=== PATIENT | female | born 1950 | race Native Hawaiian/Other Pacific Islander ===

== ENCOUNTER → 2019-07-02 | Outpatient (CLI) | payer MEDICARE, OTHER ==
[~2019-07-02] MED LIST: ALPR.25T PO; ALPR0.2550 PO; ARIP5TAB13 PO; ARPZ10T PO; BLACK COHOSH PO; BSP5T PO; CHLO4TAB PO; CLCX200C PO; D50KC PO; DCS100C PO; ESTR1TAB66 PO; EXEM25TA4 PO; GLUCOSE TABLETS PO; HYDR1TAB PO; IRB150T PO; LORA0.5T PO; LORA10TA2 PO; METO50TA7 PO; MTP25TSR PO; OMEP20TA2 PO; OXYC-12 PO; PHEN-452 PO; PROP-33 PO; PROP1TAB2; SRTR100T PO; TETR250C3 PO; TOLT2CAP; TRAM50TA2 PO; [UNRECOGNIZED DRUG - REMARK]
[2019-07-02 13:43] LABS: BASOPHILS % (AUTO) 0 % (0-10); EOSINOPHILS # (AUTO) 0.1 10^3/uL (0.0-0.3); EOSINOPHILS % (AUTO) 1 % (0-10); HEMATOCRIT 42 % (35-52); HEMOGLOBIN 13.4 G/DL (11.5-16.0); LYMPHOCYTES # (AUTO) 4.1 X 10^3 (1.0-4.0); LYMPHOCYTES % (AUTO) 41 % (12-44); MEAN CORPUSCULAR HEMOGLOBIN 29 PG (25-34); MEAN CORPUSCULAR HGB CONC 32 G/DL (32-36); MEAN CORPUSCULAR VOLUME 89 FL (80-99); MEAN PLATELET VOLUME 9.6 FL (7.4-10.4); MONOCYTES # (AUTO) 0.8 X 10^3 (0.0-1.0); MONOCYTES % (AUTO) 8 % (0-12); NEUTROPHILS % (AUTO) 50 % (42-75); PLATELET COUNT 292 10^3/uL (130-400); RED CELL DISTRIBUTION WIDTH 13.9 % (10.0-14.5); WHITE BLOOD COUNT 10.1 10^3/uL (4.3-11.0)
[2019-07-02 14:08] LABS: ALANINE AMINOTRANSFERASE 18 U/L (0-55); ALBUMIN 4.2 GM/DL (3.2-4.5); ALKALINE PHOSPHATASE 141 U/L (40-136); BILIRUBIN,TOTAL 0.3 MG/DL (0.1-1.0); BUN/CREATININE RATIO 17; CALCIUM 9.6 MG/DL (8.5-10.1); CARBON DIOXIDE 27 MMOL/L (21-32); CHLORIDE 104 MMOL/L (98-107); CREATININE SERUM 0.69 MG/DL (0.60-1.30); GFR ESTIMATED > 60; GLUCOSE 86 MG/DL (70-105); POTASSIUM 4.4 MMOL/L (3.6-5.0); SODIUM 138 MMOL/L (135-145); TOTAL PROTEIN 7.4 GM/DL (6.4-8.2)
== END ==
LOC: ONC 13:25
PROVIDERS: ATTEND Internal Medicine Hematology & Oncology
DX: C50.912 Malignant neoplasm of unspecified site of left female breast (principal)
CPT/HCPCS: 36415; 80053; 85025; 99213

== ENCOUNTER 2019-08-11 12:27 | Emergency (ER) | payer MEDICARE, OTHER ==
[~2019-08-11] VITALS: Ht 165.1 cm; Wt 100.0 kg
--- NOTE | 2019-08-11 12:48 | ED Lower Extremity ---
General Stated Complaint: R FOOT PAIN Source: patient Exam Limitations: no limitations (YUSRA SCHAEFFER MD) History of Present Illness Date Seen by Provider: Aug 11, 2019 Time Seen by Provider: 12:42 Initial Comments Here with report of right distal foot pain after dropping a crystal bowl on her foot. Denies other injury. Does have some bandages on her toes where she trimmed her toenails to close. Denies other injury. Onset: this morning Severity: moderate Pain/Injury Location: right foot, right 1st toe, right 2nd toe, right 3rd toe, right 4th toe Method of Injury: direct blow Modifying Factors: Improves With Immobilization; Worse With Movement (YUSRA SCHAEFFER MD) Allergies and Home Medications Allergies Coded Allergies: Codeine (Unverified Allergy, Mild, 10/12/09) Penicillins (Unverified Allergy, Mild, 10/12/09) aspirin (Verified Allergy, 12/31/10) Home Medications Alprazolam 0.25 Mg Tablet, 1-2 TAB PO Q6H PRN, (Reported) TAKES 1-2 (0.25MG) TABLETS EVERY 6 HOURS NEEDED FOR ANXIETY Aripiprazole 5 Mg Tablet, 5 MG PO DAILY, (Reported) Buspirone Hcl 5 Mg Tablet, 5 MG PO BID, (Reported) Celecoxib 200 Mg Capsule, 200 MG PO DAILY, (Reported) Ergocalciferol 50,000 Units Cap, 1.25 MG PO ONCE A WEEK, (Reported) Exemestane 25 Mg Tablet, 25 MG PO DAILY, (Reported) Hydrocodone Bit/Acetaminophen 1 Each Tablet, 1-2 TAB PO EVERY 4-6 HOURS PRN, (Reported) TAKES 1-2 (5-500MG) TABLETS EVERY 4-6 HOURS NEEDED FOR PAIN Metoprolol Succinate 50 Mg Tab.sr.24h, 50 MG PO DAILY, (Reported) Sertraline Hcl 100 Mg Tab, 100 MG PO TID, (Reported) Patient Home Medication List Home Medication List Reviewed: Yes (YUSRA SCHAEFFER MD) Review of Systems Constitutional: see HPI; No chills, No fever Respiratory: no symptoms reported Cardiovascular: no symptoms reported Musculoskeletal: see HPI, joint pain, muscle pain Skin: see HPI; No change in color, No lesions Psychiatric/Neurological: No Symptoms Reported (YUSRA SCHAEFFER MD) Past Avnnhkg-Utwkmw-Vkbhxs Hx Past Med/Social Hx: Reviewed Nursing Past Med/Soc Hx (YUSRA SCHAEFFER MD) Patient Social History Alcohol Use: Denies Use Recreational Drug Use: No Recent Foreign Travel: No Contact w/Someone Who Travel: No (YUSRA SCHAEFFER MD) Immunizations Up To Date Date of Pneumonia Vaccine: Jun 25, 2010 Date of Influenza Vaccine: March 25, 2013 (YUSRA SCHAEFFER MD) Past Medical History Surgeries: Yes Appendectomy, Gallbladder, Orthopedic Respiratory: No Cardiac: Yes Hypertension Neurological: No Reproductive Disorders: No Musculoskeletal: Yes Fractures Cancer: Yes Breast Psychosocial: Yes Anxiety (YUSRA SCHAEFFER MD) Family Medical History No Pertinent Family Hx (YUSRA SCHAEFFER MD) Physical Exam Vital Signs Capillary Refill : (YUSRA SCHAEFFER MD) Height, Weight, BMI Height: '" Weight: 209lbs. oz. kg; BMI Method: General Appearance: WD/WN, no apparent distress Cardiovascular: regular rate, rhythm, no murmur Respiratory: lungs clear, normal breath sounds Feet: right foot other (tenderness to the area of the midfoot distal aspect near the MTP especially lateral. Also has Band-Aids over wounds on the second and third toes. Pain over the second through fifth toes at the MTP.) Neurologic/Psychiatric: alert, oriented x 3 Skin: normal color, warm/dry (YUSRA SCHAEFFER MD) Knees: bilateral knee non-tender, bilateral knee normal inspection, bilateral knee normal range of motion Ankles: bilateral ankle non-tender, bilateral ankle normal inspection, bilateral ankle normal range of motion; right ankle swelling (chronic swelling to the right ankle from previous surgery) Feet: right foot other (tenderness to the area of the midfoot distal aspect near the MTP especially lateral. Also has Band-Aids over wounds on the second and third toes. Pain over the second through fifth toes at the MTP. The second and fourth toenails have been trimmed proximal leaving exposed nailbed of about 3-4 mm on the second and fourth toenails. No evidence of infection no erythema no drainage but there is some dried blood. This was covered with antibiotic ointment and Band-Aid.) (MARC JUSTICE APRN) Progress/Results/Core Measures Progress Progress Note : Progress Note Seen and evaluated with Marc Justice APRN. X-ray right foot ordered. Monitor patient. (YUSRA SCHAEFFER MD) Departure Impression Primary Impression: Contusion of foot Qualified Codes: S90.31XA - Contusion of right foot, initial encounter Disposition: HOME, SELF-CARE Condition: Stable Departure-Patient Inst. Decision time for Depature: 12:56 (MARC JUSTICE APRN) Referrals: SARA FABIAN MD (PCP/Family) Primary Care Physician Patient Instructions: Contusion (DC) Add. Discharge Instructions: 1. Continue to wear the boot as needed for comfort 2. Tylenol and ibuprofen for pain control 3. Return to ER for any concerns and follow up with your doctor next week. YUSRA SCHAEFFER MD Aug 11, 2019 12:48 MARC JUSTICE APRN Aug 11, 2019 12:56
--- NOTE | 2019-08-11 13:06 | Diagnostic Imaging Report ---
Indication: Pain. 3 views were obtained. Findings: The alignment is normal. There are mild degenerative changes. No acute fracture or dislocation. There are postsurgical changes in the ankle. Impression: Degenerative changes however no acute fracture or dislocation. Dictated by: Dictated on workstation # [id number]
[2019-08-11 13:23] VITALS: BP 137/84
== END 2019-08-11 13:24 | disposition home or self-care (01) ==
LOC: EDUNIT# 12:27 → ER 12:28
DX: S90.31XA Contusion of right foot, initial encounter (principal); I10 Essential (primary) hypertension; F41.9 Anxiety disorder, unspecified; Z85.3 Personal history of malignant neoplasm of breast; Z88.5 Allergy status to narcotic agent; Z88.0 Allergy status to penicillin; Z88.6 Allergy status to analgesic agent; Z90.49 Acquired absence of other specified parts of digestive tract; W20.8XXA Other cause of strike by thrown, projected or falling object, initial encounter
CPT/HCPCS: 73630

== ENCOUNTER → 2019-09-03 | Outpatient (CLI) | payer MEDICARE, OTHER ==
--- NOTE | 2019-09-03 12:26 | Diagnostic Imaging Report ---
PROCEDURE: CT right lower extremity without contrast. TECHNIQUE: Axially acquired CT was obtained through the right lower extremity without intravenous contrast. Coronal and sagittal reformations were also performed. Auto Exposure Controls were utilized during the CT exam to meet ALARA standards for radiation dose reduction. INDICATION: Right foot pain in the region of the fifth metatarsal. This study is performed to evaluate for fracture. FINDINGS: A plate and multiple screws transfix the distal fibula. A screw transfixes the medial malleolus. The talus and navicular are unremarkable. The calcaneus and cuboid appear to be intact. The cuneiforms are unremarkable. The metatarsals are intact. Specifically, the 5th metatarsal is unremarkable. No fractures are seen. The visualized phalanges are unremarkable. IMPRESSION: Postsurgical changes to the ankle. No acute bony abnormality is detected. Dictated by: Dictated on workstation # [id number]
--- NOTE | 2019-09-03 16:21 | Diagnostic Imaging Report ---
INDICATION: Routine screening. The patient did describe a questionable lump in the left breast for 2 weeks. COMPARISON: Correlation is made with prior mammograms from 04/28/2016 and 05/08/2015. TECHNIQUE: 2D and 3D bilateral screening mammography was performed with CAD. A BB marker was placed at the area of palpable abnormality in the upper left breast. FINDINGS: Scattered fibroglandular densities are identified bilaterally. The parenchymal pattern appears stable. No underlying abnormality is identified at the patient's palpable abnormality in the upper outer left breast. There are multiple surgical clips in the left axilla. No malignant appearing microcalcifications are seen. IMPRESSION: No mammographic features suspicious for malignancy are identified. Close clinical and self breast exams are recommended of the area of palpable abnormality in the upper outer left breast. If this persists, ultrasound would be recommended for further evaluation. ACR BI-RADS Category 2: Benign findings. Result letter will be mailed to the patient. Note: At least 10% of breast cancer is not imaged by mammography. Dictated by: Dictated on workstation # [id number]
== END ==
LOC: RAD 11:26
PROVIDERS: ATTEND Nurse Practitioner Family
DX: Z12.31 Encounter for screening mammogram for malignant neoplasm of breast (principal)
CPT/HCPCS: 73700; 77067

== ENCOUNTER 2019-10-05 08:47 | Outpatient (RCR) | payer MEDICARE, OTHER | END 2020-01-03 | disposition home or self-care (01) | LOC: CARD 08:47 | PROVIDERS: ATTEND Internal Medicine Cardiovascular Disease | DX: I10 Essential (primary) hypertension (principal); R00.2 Palpitations; R42 Dizziness and giddiness ==

== ENCOUNTER → 2019-12-31 | Outpatient (CLI) | payer MEDICARE, OTHER ==
[~2019-12-31] MED LIST changes: +DENOSUMAB 60 MG/1 ML (PROLIA) CANCER CTR SQ SCH
[2019-12-31 13:26] LABS: BASOPHILS % (AUTO) 0 % (0-10); EOSINOPHILS # (AUTO) 0.1 10^3/uL (0.0-0.3); EOSINOPHILS % (AUTO) 1 % (0-10); HEMATOCRIT 43 % (35-52); HEMOGLOBIN 14.1 G/DL (11.5-16.0); LYMPHOCYTES # (AUTO) 4.4 X 10^3 (1.0-4.0); LYMPHOCYTES % (AUTO) 48 % (12-44); MEAN CORPUSCULAR HEMOGLOBIN 29 PG (25-34); MEAN CORPUSCULAR HGB CONC 33 G/DL (32-36); MEAN CORPUSCULAR VOLUME 89 FL (80-99); MEAN PLATELET VOLUME 9.6 FL (7.4-10.4); MONOCYTES # (AUTO) 0.7 X 10^3 (0.0-1.0); MONOCYTES % (AUTO) 8 % (0-12); NEUTROPHILS % (AUTO) 44 % (42-75); PLATELET COUNT 234 10^3/uL (130-400); RED CELL DISTRIBUTION WIDTH 13.6 % (10.0-14.5); WHITE BLOOD COUNT 9.2 10^3/uL (4.3-11.0)
[2019-12-31 13:43] LABS: ALANINE AMINOTRANSFERASE 81 U/L (0-55); ALBUMIN 3.9 GM/DL (3.2-4.5); ALKALINE PHOSPHATASE 102 U/L (40-136); BILIRUBIN,TOTAL 0.5 MG/DL (0.1-1.0); BUN/CREATININE RATIO 11; CALCIUM 9.4 MG/DL (8.5-10.1); CARBON DIOXIDE 22 MMOL/L (21-32); CHLORIDE 107 MMOL/L (98-107); CREATININE SERUM 0.65 MG/DL (0.60-1.30); GFR ESTIMATED > 60; GLUCOSE 90 MG/DL (70-105); POTASSIUM 4.2 MMOL/L (3.6-5.0); SODIUM 139 MMOL/L (135-145); TOTAL PROTEIN 6.8 GM/DL (6.4-8.2)
== END ==
LOC: ONC 13:05
PROVIDERS: ATTEND Internal Medicine Hematology & Oncology
DX: C50.912 Malignant neoplasm of unspecified site of left female breast (principal)
CPT/HCPCS: 80053; 85025; 96372

== ENCOUNTER → 2020-01-23 | Outpatient (CLI) | payer MEDICARE, OTHER ==
[~2020-01-23] VITALS: Ht 165 cm; Wt 107.0 kg
[~2020-01-23] MED LIST changes: +CATHETER FLUSH 10 ML SYR IV PRN; -DENOSUMAB 60 MG/1 ML (PROLIA) CANCER CTR SQ SCH
--- NOTE | 2020-01-23 15:47 | STRESS TEST ---
DATE OF SERVICE: 01/23/2020 EXERCISE MYOVIEW STRESS TEST REPORT REFERRING PHYSICIAN: . Baseline heart rate is 81 and baseline blood pressure 145/82. Baseline EKG is sinus rhythm with no ischemic changes. In summary, the patient was injected with 10.7 mCi of technetium-99 Myoview and the resting images were obtained. Then, the patient started exercising with a baseline heart rate, blood pressure and EKG mentioned above. The patient was able to exercise for 5 minutes 15 seconds on a standard Ge protocol. With peak exercise level, EKG was showing minimal nondiagnostic changes. During recovery, heart rate and blood pressure returned to baseline. EKG returned to baseline. The resting and stress images were reviewed and compared in the short axis, horizontal long axis and vertical long axis views. Review of the images showed good radiotracer uptake with no significant ischemia or infarction. SSS is 1, SDS 1 and TID value 0.94. On the gated images, the left ventricle appeared to be in normal size with normal contractility. Calculated ejection fraction is 71%. CONCLUSION: 1. Fair exercise tolerance, a total of 5 minutes 15 seconds on standard Ge protocol, total of 7.1 METS achieving 87% of maximum expected heart rate. 2. Hypertensive response to exercise with peak blood pressure 237/106, returned to baseline during recovery. 3. Nondiagnostic EKG changes with exercise returned to baseline during recovery. 4. No ischemia or infarction on SPECT images. 5. Normal left ventricular size with normal contractility. Calculated ejection fraction is 71%. Job ID: [id number] DocumentID: [id number] Dictated Date: 01/23/2020 15:00:27 Orthotic Practitioner Date: 01/23/2020 15:47:23 Dictated By: DOROTA SPARROW MD
== END ==
LOC: CARD 11:20
PROVIDERS: ATTEND Physician Assistant
DX: I10 Essential (primary) hypertension (principal); R00.2 Palpitations; R07.9 Chest pain, unspecified
CPT/HCPCS: 78452; 93017

== ENCOUNTER → 2020-02-11 | Outpatient (CLI) | payer MEDICARE, OTHER ==
[~2020-02-11] MED LIST changes: -CATHETER FLUSH 10 ML SYR IV PRN
--- NOTE | 2020-02-11 12:06 | Diagnostic Imaging Report ---
PROCEDURE: US Abdomen, limited. TECHNIQUE: Multiple realtime grayscale images were obtained over the abdomen in various projections. INDICATION: Pain and lump in the left lower quadrant. Sonographic interrogation of the area of pain and lump of the left lower quadrant was performed. No sonographic abnormality is identified. No abdominal wall defect or evidence of hernia is detected. No fluid collection is identified. IMPRESSION: No sonographic abnormality is detected. Dictated by: Dictated on workstation # [id number]
== END ==
LOC: RAD 08:53
PROVIDERS: ATTEND Nurse Practitioner Family
DX: R10.32 Left lower quadrant pain (principal)
CPT/HCPCS: 76705

== ENCOUNTER → 2020-02-14 | Outpatient (CLI) | payer MEDICARE, OTHER ==
--- NOTE | 2020-02-14 10:42 | Diagnostic Imaging Report ---
PROCEDURE: CT abdomen and pelvis without contrast. TECHNIQUE: Multiple contiguous axial images were obtained through the abdomen and pelvis without the use of intravenous contrast. Auto Exposure Controls were utilized during the CT exam to meet ALARA standards for radiation dose reduction. INDICATION: Left lower quadrant pain COMPARISON: 12/20/2014 FINDINGS: The visualized lung bases are clear. Diffusely decreased density of the liver, consistent with fatty infiltration of the liver. No focal hepatic mass. Cholecystectomy. The unenhanced spleen is unremarkable. The adrenal glands are unremarkable. The pancreas is unremarkable. The right kidney and right ureter are unremarkable. Left renal cyst. The left kidney and left ureter are otherwise unremarkable. No aneurysmal dilatation of the abdominal aorta. The urinary bladder is unremarkable. The uterus is not visualized, likely surgically absent. No abnormal adnexal mass lesion. Prior appendectomy. No bowel obstruction or pneumatosis. No significant inguinal hernia. No significant adenopathy, free air, or free fluid within the abdomen or pelvis. No acute osseous abnormality. IMPRESSION: No acute abnormality. Fatty infiltration of the liver. Cholecystectomy and appendectomy and hysterectomy. Additional findings as above. Dictated by: Dictated on workstation # [id number]
== END ==
LOC: RAD 09:58
PROVIDERS: ATTEND Nurse Practitioner Family
DX: K76.0 Fatty (change of) liver, not elsewhere classified (principal); R10.32 Left lower quadrant pain
CPT/HCPCS: 74176

== ENCOUNTER → 2020-03-03 | Outpatient (CLI) | payer MEDICARE, OTHER ==
--- NOTE | 2020-03-03 13:00 | Diagnostic Imaging Report ---
Indication: Lumbar spinal pain AP image of the lumbar spine is obtained. Images obtained in the lateral projection in flexed, neutral and extended positions. Lumbar spinal curvature and alignment are unremarkable. Vertebral body heights are maintained. There is mild disc space narrowing involving the upper and mid lumbar region. There is mild endplate spurring without evidence of acute fracture. Note is made of sclerosis about the L5-S1 facet joints, greater on the left. Impression: L5-S1 degenerative facet arthropathy, greater on the left. Otherwise there are mild degenerative findings throughout the upper and mid lumbar spine without acute abnormality or lumbar spinal instability identified. Dictated by: Dictated on workstation # [id number]
== END ==
LOC: RAD 11:51
DX: M47.817 Spondylosis without myelopathy or radiculopathy, lumbosacral region (principal)
CPT/HCPCS: 72110

== ENCOUNTER → 2020-07-02 | Outpatient (CLI) | payer MEDICARE, OTHER ==
[~2020-07-02] MED LIST changes: +DENOSUMAB 60 MG/1 ML (PROLIA) CANCER CTR SQ SCH
[2020-07-03 05:57] LABS: ALANINE AMINOTRANSFERASE 44 U/L (0-55); ALBUMIN 3.9 GM/DL (3.2-4.5); ALKALINE PHOSPHATASE 77 U/L (40-136); BILIRUBIN,TOTAL 0.5 MG/DL (0.1-1.0); BUN/CREATININE RATIO 12; CALCIUM 9.2 MG/DL (8.5-10.1); CARBON DIOXIDE 24 MMOL/L (21-32); CHLORIDE 109 MMOL/L (98-107); CREATININE SERUM 0.58 MG/DL (0.60-1.30); GFR ESTIMATED > 60; GLUCOSE 97 MG/DL (70-105); POTASSIUM 4.1 MMOL/L (3.6-5.0); SODIUM 141 MMOL/L (135-145); TOTAL PROTEIN 6.8 GM/DL (6.4-8.2)
[2020-07-03 06:27] LABS: HEMATOCRIT 42 % (35-52); HEMOGLOBIN 13.9 G/DL (11.5-16.0); MEAN CORPUSCULAR HEMOGLOBIN 30 PG (25-34); MEAN CORPUSCULAR VOLUME 91 FL (80-99); WHITE BLOOD COUNT 8.3 10^3/uL (4.3-11.0)
[2020-07-03 06:28] LABS: BASOPHILS % (AUTO) 0 % (0-10); EOSINOPHILS # (AUTO) 0.1 10^3/uL (0.0-0.3); EOSINOPHILS % (AUTO) 1 % (0-10); LYMPHOCYTES % (AUTO) 49 % (12-44); MEAN CORPUSCULAR HGB CONC 34 G/DL (32-36); MEAN PLATELET VOLUME 9.4 FL (7.4-10.4); MONOCYTES # (AUTO) 0.6 X 10^3 (0.0-1.0); MONOCYTES % (AUTO) 8 % (0-12); NEUTROPHILS # (AUTO) 3.5 X 10^3 (1.8-7.8); NEUTROPHILS % (AUTO) 42 % (42-75); PLATELET COUNT 241 10^3/uL (130-400); RED CELL DISTRIBUTION WIDTH 13.6 % (10.0-14.5)
== END ==
LOC: ONC 11:30
PROVIDERS: ATTEND Internal Medicine Hematology & Oncology
DX: C50.112 Malignant neoplasm of central portion of left female breast (principal); N64.89 Other specified disorders of breast; M85.80 Other specified disorders of bone density and structure, unspecified site; Z92.3 Personal history of irradiation
CPT/HCPCS: 80053; 85025; G0463; 99213

== ENCOUNTER → 2020-07-10 | Outpatient (CLI) | payer MEDICARE, OTHER ==
[~2020-07-10] MED LIST changes: -DENOSUMAB 60 MG/1 ML (PROLIA) CANCER CTR SQ SCH
--- NOTE | 2020-07-10 10:59 | Diagnostic Imaging Report ---
INDICATION: Tenderness in the lateral right breast. Correlation is made with prior mammogram from 09/03/2019 and 05/01/2016. 2-D and 3-D bilateral diagnostic mammography was performed with CAD. Scattered fibroglandular densities identified bilaterally. No mass or malignant appearing microcalcifications are seen. There are clips in the left axilla. IMPRESSION: BI-RADS 0 No mammographic features suspicious for malignancy are identified. Even so, directed sonographic interrogation of the area of tenderness in the lateral right breast is recommended and will be performed today. ACR BI-RADS Category 0: Incomplete. (Needs additional imaging evaluation). Result letter will be mailed to the patient. Note: At least 10% of breast cancer is not imaged by mammography. Dictated by: Dictated on workstation # [id number]
--- NOTE | 2020-07-10 11:04 | Diagnostic Imaging Report ---
Indication: Tenderness in the lateral right breast. Correlation is made with diagnostic mammogram earlier same day. Sonographic interrogation of the area of pain in the far lateral right breast and right axilla was performed. No sonographic abnormality is seen. No solid or cystic mass is detected. IMPRESSION: BI-RADS Category 1 No sonographic abnormality is detected. ACR BI-RADS Category 1: Negative. Dictated by: Dictated on workstation # [id number]
== END ==
LOC: RAD 09:45
PROVIDERS: ATTEND Nurse Practitioner Adult Health
DX: N63.10 Unspecified lump in the right breast, unspecified quadrant (principal); Z85.3 Personal history of malignant neoplasm of breast
CPT/HCPCS: 76642; 77066; G0279; 77062

== ENCOUNTER → 2021-01-21 | Outpatient (CLI) | payer MEDICARE, OTHER | LOC: CARD 13:19 | PROVIDERS: ATTEND Internal Medicine Cardiovascular Disease | DX: R00.2 Palpitations (principal) | CPT/HCPCS: 93351 ==

== ENCOUNTER → 2021-03-18 | Outpatient (CLI) | payer MEDICARE, OTHER ==
[~2021-03-18] MED LIST changes: +CATHETER FLUSH 10 ML SYR IV PRN; +HOLD METFORMIN - RECEIVED CONTRAST 20 ML VIAL IV SCH; +IOHEXOL 350 MG/ML 100 ML (OMNIPAQUE 350) VIAL IV ONE; +NS 100 ML (IVPB) BAG IV ONE
[2021-03-18 08:16] LABS: BUN/CREATININE RATIO 9; CREATININE SERUM 0.74 MG/DL (0.60-1.30); GFR ESTIMATED > 60
--- NOTE | 2021-03-18 10:16 | Diagnostic Imaging Report ---
PROCEDURE: CT abdomen and pelvis with and without contrast. TECHNIQUE: Precontrast acquisitions were acquired through the abdomen and pelvis. Multiple contiguous axial images were obtained through the abdomen and pelvis after the administration of intravenous contrast. Auto Exposure Controls were utilized during the CT exam to meet ALARA standards for radiation dose reduction. INDICATION: Left-sided pain, history of breast cancer. FINDINGS: The previous CT abdomen/pelvis exam of 02/14/2020 failed to show any sign of an acute abnormality. On this study, there is still no evidence for nephrolithiasis or urolithiasis and the kidneys do not appear to be obstructed. There is no sign of a bowel obstruction either. There is no pelvic mass or free fluid collection identified. There are a few diverticula in the sigmoid colon but there is no evidence for acute diverticulitis. By history, the gallbladder, uterus, and appendix are surgically absent. The liver is of lower density than usually seen. This does suggest fatty metamorphosis. The liver does not appear to be enlarged and there is no focal mass involving the liver. The spleen, pancreas, adrenals, aorta, inferior vena cava, and portal vein show no sign of an acute abnormality. There is a benign-appearing 3.8 cm cyst along the superior pole of the left kidney. The stomach is not well-distended and consequently difficult to assess. The lung bases are generally clear. There is no obvious breast mass. The bone windows show no sign of a fracture or destructive lesion. IMPRESSION: 1. There is still no evidence for an acute abnormality of the abdomen or pelvis. 2. There is diverticulosis of the sigmoid and descending colon but there is no sign of acute diverticulitis. 3. The gallbladder, appendix, and uterus are surgically absent. Dictated by: Dictated on workstation # [id number]
== END ==
LOC: RAD 07:43
PROVIDERS: ATTEND Nurse Practitioner Family
DX: K57.30 Diverticulosis of large intestine without perforation or abscess without bleeding (principal); Z90.49 Acquired absence of other specified parts of digestive tract; Z85.3 Personal history of malignant neoplasm of breast
CPT/HCPCS: 36415; 74178; 82565; 84520

== ENCOUNTER 2021-04-10 05:41 | Outpatient (CLI) | payer MEDICARE, OTHER ==
[~2021-04-10] VITALS: Ht 162.6 cm; Wt 105.5 kg
[~2021-04-10 05:41] MED LIST changes: -CATHETER FLUSH 10 ML SYR IV PRN; -HOLD METFORMIN - RECEIVED CONTRAST 20 ML VIAL IV SCH; -IOHEXOL 350 MG/ML 100 ML (OMNIPAQUE 350) VIAL IV ONE; -NS 100 ML (IVPB) BAG IV ONE
[2021-04-14] MEDS ORDERED: GABA300S2 PO (14:30)
[2021-04-14] MEDS ORDERED: AMIT25TA9 PO (14:30)
[2021-04-14] MEDS ORDERED: ROSU20TA32 PO (14:30)
[2021-04-14] MEDS ORDERED: LOSA25TA41 PO (14:30)
[2021-04-14] MEDS ORDERED: HYDR-700 PO (14:30)
[2021-04-16] MEDS ORDERED: OXYC1TAB16 PO (10:20)
== END 2021-04-14 14:42 | disposition home or self-care (01) ==
LOC: PREOP 05:41
PROVIDERS: ATTEND Surgery
DX: Z01.818 Encounter for other preprocedural examination (principal)

== ENCOUNTER 2021-04-16 09:19 | Day surgery (SDC) | payer MEDICARE, OTHER ==
[~2021-04-16] VITALS: Ht 162.6 cm; Wt 105.5 kg
[2021-04-16] VITALS (10 sets, daily range): BP systolic 131–172; BP diastolic 59–75
[~2021-04-16 09:19] MED LIST changes: +AMIT25TA9 PO; +GABA300S2 PO; +HYDR-700 PO; +LOSA25TA41 PO; +ROSU20TA32 PO
[2021-04-16] MEDS ORDERED: CLINDAMYCIN 600 MG/50 ML IVPB 50 ML IV ONE (09:30)
[2021-04-16] MEDS ORDERED: proPOfol 200 MG/20 ML (DIPRIVAN) VIAL IV ONE (09:51)
[2021-04-16] MEDS ORDERED: LIDOCAINE PF 2% 5 ML (XYLOCAINE) VIAL ONE (09:51)
[2021-04-16] MEDS ORDERED: ROCURONIUM 10 MG/ML 5 ML SYRINGE IV ONE (09:51)
[2021-04-16] MEDS ORDERED: MIDAZOLAM 2 MG/2 ML (VERSED) VIAL ONE (09:51)
[2021-04-16] MEDS ORDERED: ONDANSETRON 4 MG/2 ML (SDV) Z0FRAN ONE (09:51)
[2021-04-16] MEDS ORDERED: fentaNYL INJ 100 MCG/2 ML AMP ONE (09:51)
[2021-04-16] MEDS ORDERED: SEVOFLURANE (ULTANE) 15 ML INHAL SOLN ONE ×5 (09:54→12:41)
[2021-04-16] MEDS: LACTATED RINGERS 1,000 ML IV PRN ×2 (10:00→13:07)
--- NOTE | 2021-04-16 10:18 | Progress Note-Pre Operative ---
Pre-Operative Progress Note H&P Reviewed The H&P was reviewed, patient examined and no changes noted. Date Seen by Provider: Apr 16, 2021 Time Seen by Provider: 10:00 Date H&P Reviewed: Apr 16, 2021 Time H&P Reviewed: 10:00 Pre-Operative Diagnosis: umbilical hernia, lower abd pain NEDRA CHRISTIE MD Apr 16, 2021 10:18
[2021-04-16] MEDS ORDERED: OXYC1TAB16 PO (10:20)
--- NOTE | 2021-04-16 10:20 | Discharge Inst-Surgical ---
D/C Lap Instructions-SHAHNAZ New, Converted, or Re-Newed RX: RX on Chart Follow Up Appt in 2 weeks Activity as tolerated No driving for 24 hours No driving while on pain medications Incentive Spirometry use every 2 hours while awake Regular Diet Symptoms to Report: Fever over 101 degree F, Nausea/Vomiting Infection Signs and Symptoms to report: Increased redness, Foul odor of wound, Increased drainage Bathing instructions: May shower Operative Area Clean/Dry; Keep incision clean/dry If any problems/questions: Contact your physician or go to Emergency Room NEDRA CHRISTIE MD Apr 16, 2021 10:20
[2021-04-16] MEDS ORDERED: oxyCODONE/APAP 5/325MG (PERCOCET 5) TABLET PO PRN (10:30)
[2021-04-16] MEDS ORDERED: ACETAMINOPHEN 325 MG TABLET PO PRN (10:30)
[2021-04-16] MEDS ORDERED: morphine INJ 10 MG/ML 1ML (SYR OR VIAL) IVP PRN ×2 (10:30)
[2021-04-16] MEDS ORDERED: ONDANSETRON 4 MG/2 ML (SDV) Z0FRAN IVP PRN ×2 (10:30→13:15)
[2021-04-16] MEDS ORDERED: LIDOCAINE/EPI 1%-1:200,000 (XYLOCAINE) 30 ML VIAL ONE (10:44)
--- NOTE | 2021-04-16 12:42 | Progress Note-Post Operative ---
Post-Operative Progess Note Surgeon (s)/Cassandra Developer (s) Surgeon NEDRA CHRISTIE MD Cassandra Developer: joshua shook STEAM FITTER Pre-Operative Diagnosis umbilical hernia, lower abd pain Post-Operative Diagnosis preperitoneal umbilical hernia. subcutaneous adhesions lower abd. Procedure & Operative Findings Date of Procedure 04/16/21 Procedure Performed/Findings diagnostic laparoscopy. open umbilical hernia repair with mesh. lysis of abdominal wall subcutaneous scar adhesions Anesthesia Type get Estimated Blood Loss Estimated blood loss (mL): minimal Specimens/Packing Specimens Removed none NEDRA CHRISTIE MD Apr 16, 2021 12:42
[2021-04-16] MEDS ORDERED: morphine INJ 10 MG/ML 1ML (SYR OR VIAL) IVP ONE (13:15)
--- NOTE | 2021-04-16 14:48 | Anesthesia-General Post-Op ---
General Patient Condition Mental Status/LOC: Same as Preop Cardiovascular: Satisfactory Nausea/Vomiting: Absent Respiratory: Satisfactory Pain: Controlled Complications: Absent Post Op Complications Complications None Follow Up Care/Instructions Patient Instructions None needed. Anesthesia/Patient Condition Patient Condition Patient is doing well, no complaints, stable vital signs, no apparent adverse anesthesia problems. No complications reported per nursing. TARIK VELEZ CRNA Apr 16, 2021 14:48
--- NOTE | 2021-04-16 17:10 | OPERATIVE REPORT ---
DATE OF SERVICE: 04/16/2021 ATTENDING PRIMARY CARE PHYSICIAN: Dr. Santos Negrete. PREOPERATIVE DIAGNOSES: Symptomatic reducible umbilical hernia and lower abdominal pain along the previous hysterectomy incision. POSTOPERATIVE DIAGNOSES: Umbilical reducible preperitoneal hernia. No incisional hernia. Subcutaneous adhesive tissue attaching the skin to the fascia from a previous hysterectomy scar. PROCEDURES PERFORMED: Diagnostic laparoscopy open repair, preperitoneal umbilical hernia with mesh, release of subcutaneous adhesion tissue previous hysterectomy scar. SURGEON: Nedra Christie MD. INSURANCE FOLLOW UP REP: Lane Owen APRN. ANESTHESIA: General endotracheal. ESTIMATED BLOOD LOSS: Minimal. FINDINGS: Umbilical reducible preperitoneal hernia. No incisional hernia. Subcutaneous adhesive tissue attaching the skin to the fascia from a previous hysterectomy scar. DISPOSITION: The patient tolerated the procedure well. INDICATIONS FOR PROCEDURE: The patient is a 71-year-old female, who was initially seen on 03/10/2021 for abdominal pain. She reports that six months previous, she was working with topsoil bags, which were approximately 50 pounds and while lifting developed pain in the left lower abdominal quadrant; however, also had pain in the right lower abdominal quadrant. She states that with activities, the pain would reoccur. She is otherwise eating well and having normal bowel movements. She states that she has struggled with constipation in the past. She did have a CT scan performed, which did show a left renal cyst. She had had previous surgeries including a total hysterectomy as well as bladder suspension in the past with a Pfannenstiel incision. Upon examination, the patient was found to have pain in the lower abdominal quadrants, which may have represented lipomas versus a scar tissue from her previous Pfannenstiel incision. There was also a reducible umbilical hernia, which was tender to palpation. DESCRIPTION OF PROCEDURE: The patient was brought to the operating room and laid supine on the table. After adequate IV pain and sedative medications and general endotracheal intubation, the abdomen was prepped and draped in a standard surgical fashion. A 0.5% Marcaine with epinephrine was then used to anesthetize the overlying skin in the left upper abdominal quadrant and a transverse skin incision was made using a 15 blade. A 0 silk suture was applied to the medial aspect of the incision for retraction and a Veress needle inserted with a low opening pressure of 0 mmHg and the abdomen was then insufflated to 15 mmHg pressure. The Veress needle removed and a 5 mm XL trocar was placed followed by a 5 mm 45-degree angle laparoscope visualizing the peritoneal cavity. A four-quadrant abdominal exploration was performed. There was the palpable umbilical hernia externally; however, this did not penetrate the peritoneal lining more consistent with a preperitoneal hernia. There was no incisional hernia identified. There was an indentation of the skin along the previous Pfannenstiel incision consistent with scar tissue. It appears that she has gained a significant amount of weight over time since her surgery. There were no inguinal hernias. There was a mild to moderate liver steatosis. We then proceeded with an open repair of the preperitoneal umbilical hernia. The supraumbilical region was anesthetized using a 0.5% Marcaine with epinephrine and a crescent shaped skin incision made using a 15 blade. The subcutaneous tissue was then dissected down using electrocautery to the base of the umbilicus, where a defect was identified with fat protruding through this. It was decided then to proceed with a preperitoneal hernia repair and the peritoneal lining was dissected bluntly and a small round coated polypropylene mesh 4.3 cm in diameter was then placed into the fascial defect and sutured to the fascia concentrically using interrupted 0 Prolene sutures. The abdomen was then desufflated and the remaining ports were removed. During insufflation, there was indentation of the previous Pfannenstiel incision scar likely consistent with a subcutaneous scar tissue tethering the skin to the fascia causing her lower quadrant abdominal pain. The bilateral portions of the Pfannenstiel incision were then anesthetized using a 0.5% Marcaine and a transverse skin incision was then made using a 15 blade to 2cm. Using a blunt dissection, the subcutaneous scar tissue was broken up bluntly releasing the skin from the subcutaneous scar tissue with visualization of good hemostasis. All skin incisions were then closed using 4-0 Monocryl running subcuticular sutures. The wounds were then cleaned and covered with Dermabond. The umbilicus was then filled with tonsil sponges followed by 4 x 4 gauze followed by large Op-Site. The patient tolerated the procedure well. We will start IV normal pain medication as well as a clear liquid diet. When she is tolerating clears, has good pain control with oral pain medications, and ambulating well, we will discharge her home. She will be instructed to do no heavy lifting or exertion for the next two weeks. Job ID: [id number] DocumentID: [id number] Dictated Date: 04/16/2021 12:52:29 Animal Trainer Date: 04/16/2021 17:09:51 Dictated By: NEDRA CHRISTIE MD MTDD
--- NOTE | 2021-04-17 16:20 | HISTORY AND PHYSICAL ---
ADMITTING PRIMARY CARE PHYSICIAN: Dr. Santos Negrete. HISTORY OF PRESENT ILLNESS: The patient is a 71-year-old female who we had seen on 03/10/2021 for abdominal pain. She states that approximately 6 months ago, she was working with top soil bags, which were approximately 50 pounds and while lifting, developed pain in the left lower abdominal quadrant; however, was also in the right lower abdominal quadrant as well. She states that with activities, the pain would reoccur as well. She states that she is otherwise eating well and does have bowel movements, but however, has struggled with constipation for many years. She did have a CT scan done, which did show a left renal cyst; however, no hernias were detected. She has had previous surgeries performed including total hysterectomy as well as bladder suspension in the past. Upon examination, the patient does have pain upon palpation of the lower quadrants of the abdomen and there appears to be some discrete nodules, likely consistent with symptomatic lipomas. She also does have pain in the umbilical region and she does have a reducible umbilical hernia as well. There are no peritoneal signs. PAST MEDICAL HISTORY: Left breast cancer, hypoglycemia, depression, panic attacks, hypercholesterolemia, hypertension, neuropathy, morbid obesity. PAST SURGICAL HISTORY: Bladder suspension in 1994, right ankle ORIF in 2004, open total hysterectomy in 1974, left breast lumpectomy and sentinel node in 2011. ALLERGIES: PENICILLIN AND CODEINE. MEDICATIONS: Sertraline, hydroxyzine, Zyrtec, omega 3 fatty acid, aripiprazole, clonazepam, losartan, metoprolol, amitriptyline, rosuvastatin, gabapentin, triamcinolone cream. SOCIAL HISTORY: Negative for smoke, negative alcohol. FAMILY HISTORY: Sister, breast cancer. Maternal grandmother, breast cancer. VITAL SIGNS: Stable. Blood pressure 153/61. Current weight 236.7 pounds at 5 feet 4 inches. REVIEW OF SYSTEMS: Well-nourished female currently in no acute distress. She is not experiencing any shortness of breath or difficulty breathing. No chest pain, palpitations, diaphoresis. No nausea, vomiting with a longstanding history of constipation, no red blood per rectum, no dark tarry stools. No fever, chills, no recent inadvertent weight loss. All other review of systems negative. PHYSICAL EXAMINATION: CHEST: Clear. Good breath sounds bilaterally. HEART: Regular, no murmurs. EXTREMITIES: No lower extremity edema, negative Homans sign. HEENT: No scleral icterus. NECK: No cervical lymphadenopathy. ABDOMEN: There is a symptomatic reducible umbilical hernia. There is also pain in bilateral lower abdominal quadrants with a consistency upon deep palpation with pain elicited which may indicate benign lipomas. There were no hernias palpable in the lower abdominal quadrants. SKIN: Warm, dry. ASSESSMENT AND PLAN: A 71-year-old female with symptomatic reducible umbilical hernia. She also may have an incisional hernia; however, we cannot discern this on physical examination as well as on the CT scan, so we will proceed with a diagnostic laparoscopy and repair of the umbilical hernia as well as any other hernias identified. During pneumo insufflation as well as general anesthesia, we will also palpate the abdominal wall, especially in the lower abdominal quadrants for well circumscribed lesions in the subcutaneous fat, which may indicate symptomatic lipomas and thus so we will excise these as well. Job ID: [id number] DocumentID: [id number] Dictated Date: 04/01/2021 17:09:55 Instructional Services Librarian Date: 04/01/2021 17:35:30 Dictated By: NEDRA CHRISTIE MD <Dictated by NEDRA CHRISTIE MD> <Electronically signed by NEDRA CHRISTIE MD> 04/02/21 1558 MTDD
== END 2021-04-16 15:10 ==
LOC: SDC 09:19
PROVIDERS: ATTEND Surgery
DX: K42.9 Umbilical hernia without obstruction or gangrene (principal); K66.0 Peritoneal adhesions (postprocedural) (postinfection); L90.5 Scar conditions and fibrosis of skin; I10 Essential (primary) hypertension; E78.5 Hyperlipidemia, unspecified; E66.01 Morbid (severe) obesity due to excess calories; G62.9 Polyneuropathy, unspecified; F32.9 Major depressive disorder, single episode, unspecified; Z85.3 Personal history of malignant neoplasm of breast; E16.2 Hypoglycemia, unspecified; E78.00 Pure hypercholesterolemia, unspecified; Z90.710 Acquired absence of both cervix and uterus; Z79.899 Other long term (current) drug therapy
CPT/HCPCS: 49320; 49585; 87081; C1781

== ENCOUNTER → 2021-06-29 | Outpatient (CLI) | payer MEDICARE, OTHER ==
[~2021-06-29] MED LIST changes: +OXYC1TAB16 PO
[2021-06-29 13:18] LABS: BASOPHILS % (AUTO) 0 % (0-10); EOSINOPHILS # (AUTO) 0.2 10^3/uL (0.0-0.3); EOSINOPHILS % (AUTO) 2 % (0-10); HEMATOCRIT 44 % (35-52); HEMOGLOBIN 14.3 g/dL (11.5-16.0); LYMPHOCYTES # (AUTO) 3.8 10^3/uL (1.0-4.0); LYMPHOCYTES % (AUTO) 46 % (12-44); MEAN CORPUSCULAR HEMOGLOBIN 31 pg (25-34); MEAN CORPUSCULAR HGB CONC 33 g/dL (32-36); MEAN CORPUSCULAR VOLUME 93 fL (80-99); MEAN PLATELET VOLUME 9.4 fL (9.0-12.2); MONOCYTES # (AUTO) 0.6 10^3/uL (0.0-1.0); MONOCYTES % (AUTO) 8 % (0-12); NEUTROPHILS # (AUTO) 3.5 10^3/uL (1.8-7.8); NEUTROPHILS % (AUTO) 44 % (42-75); PLATELET COUNT 214 10^3/uL (130-400); WHITE BLOOD COUNT 8.1 10^3/uL (4.3-11.0)
[2021-06-29 13:41] LABS: ALBUMIN 3.9 GM/DL (3.2-4.5); BILIRUBIN,TOTAL 0.6 MG/DL (0.1-1.0); CALCIUM 9.5 MG/DL (8.5-10.1); CREATININE SERUM 0.75 MG/DL (0.60-1.30); POTASSIUM 4.2 MMOL/L (3.6-5.0); TOTAL PROTEIN 6.9 GM/DL (6.4-8.2)
== END ==
LOC: ONC 13:07
PROVIDERS: ATTEND Internal Medicine Hematology & Oncology
DX: N64.4 Mastodynia (principal); M79.629 Pain in unspecified upper arm; R22.2 Localized swelling, mass and lump, trunk
CPT/HCPCS: 80053; 85025; G0463; 99213

== ENCOUNTER → 2021-07-08 | Outpatient (CLI) | payer MEDICARE, OTHER ==
[~2021-07-08] MED LIST changes: +HOLD METFORMIN - RECEIVED CONTRAST 20 ML VIAL IV SCH
--- NOTE | 2021-07-08 13:25 | Diagnostic Imaging Report ---
Indication: Left breast carcinoma. Patient's pain in the lateral right breast. Correlation is made with prior mammogram 07/10/2020 and 09/03/2019. 2-D and 3-D bilateral diagnostic mammography was performed with CAD. Scattered fibroglandular densities are identified bilaterally. There are surgical clips in left axilla. No spiculated mass or malignant-appearing microcalcifications are seen. There are benign calcifications. Axillae are unremarkable. IMPRESSION: BI-RADS 0 No mammographic features suspicious for malignancy are identified. Even so, the sonographic interrogation of the area of pain in the outer right breast is recommended and will be performed today. ACR BI-RADS Category 0: Incomplete. (Needs additional imaging evaluation). Result letter will be mailed to the patient. Note: At least 10% of breast cancer is not imaged by mammography. Dictated by: Dictated on workstation # [id number]
--- NOTE | 2021-07-08 13:36 | Diagnostic Imaging Report ---
INDICATION: Pain in the lower outer right breast. COMPARISON: Correlation is made with the diagnostic mammogram from earlier this same day. FINDINGS: Sonographic interrogation of the area of pain in the lower outer right breast was performed. No sonographic abnormality is seen. No solid or cystic mass is detected. IMPRESSION: No sonographic abnormality is detected. ACR BI-RADS Category 1: Negative. Dictated by: Dictated on workstation # [id number]
[2021-07-08] MEDS: IOHEXOL 350 MG/ML 100 ML (OMNIPAQUE 350) VIAL IV ONE (13:37)
[2021-07-08] MEDS: NS 100 ML (IVPB) BAG IV ONE (13:38)
[2021-07-08] MEDS: CATHETER FLUSH 10 ML SYR IV PRN (13:38)
--- NOTE | 2021-07-08 14:56 | Diagnostic Imaging Report ---
PROCEDURE: CT chest with contrast only. TECHNIQUE: Multiple contiguous axial images were obtained through the chest after administration of intravenous contrast. Auto Exposure Controls were utilized during the CT exam to meet ALARA standards for radiation dose reduction. DATE: July 08, 2021. COMPARISON: CT chest December 20, 2014. INDICATION: 71-year-old female, chest pain. History of left-sided breast cancer. FINDINGS: There is a 3 mm noncalcified right lower lobe pulmonary nodule on axial image 77 which is unchanged. There are mild linear opacities in the left upper lobe, most consistent with scarring and/or atelectasis. There is no new or enlarging pulmonary nodule. There is no otherwise noted focal airspace consolidation. There is no pneumothorax. There is no pleural effusion. There is no identified central pulmonary embolus. The heart is not enlarged. There is no pericardial effusion. There is no identified abnormally enlarged mediastinal, hilar, or axillary lymph node meeting CT size criteria for adenopathy. There is diffuse fatty infiltration of the liver. The patient is status post cholecystectomy. There is no biliary ductal dilation. There is a low-attenuation left renal lesion on axial image 136 measuring 3.5 cm in size with internal attenuation compatible with a benign cyst. There are degenerative changes of the spine. There is no identified acute bony abnormality. IMPRESSION: 1. No identified acute cardiopulmonary abnormality. 2. A 3 mm noncalcified right lower lobe pulmonary nodule is compatible with benign etiology given stability since 2014. 3. Diffuse fatty infiltration of the liver. 4. Benign left renal cyst. Dictated by: Dictated on workstation # [id number]
== END ==
LOC: RAD 12:44
PROVIDERS: ATTEND Nurse Practitioner Adult Health
DX: N64.4 Mastodynia (principal); R91.1 Solitary pulmonary nodule; K76.0 Fatty (change of) liver, not elsewhere classified; N28.1 Cyst of kidney, acquired; Z85.3 Personal history of malignant neoplasm of breast
CPT/HCPCS: 71260; 76642; 77066; G0279; 77062

== ENCOUNTER → 2021-08-31 | Outpatient (CLI) | payer MEDICARE, OTHER ==
[~2021-08-31] MED LIST changes: -HOLD METFORMIN - RECEIVED CONTRAST 20 ML VIAL IV SCH
== END ==
LOC: ONC 13:08
PROVIDERS: ATTEND Internal Medicine Hematology & Oncology
DX: C50.112 Malignant neoplasm of central portion of left female breast (principal); I89.0 Lymphedema, not elsewhere classified; M85.80 Other specified disorders of bone density and structure, unspecified site; I10 Essential (primary) hypertension; E66.9 Obesity, unspecified; E78.2 Mixed hyperlipidemia; Z92.3 Personal history of irradiation
CPT/HCPCS: 99213

== ENCOUNTER → 2022-01-05 | Outpatient (CLI) | payer MEDICARE, OTHER ==
--- NOTE | 2022-01-05 11:28 | Diagnostic Imaging Report ---
INDICATION: Fell out of bed. Pain EXAMINATION: Left elbow 01/05/2022 FINDINGS: There is no evidence for an acute fracture or dislocation. The joint spaces are well maintained. There is no significant soft tissue swelling. IMPRESSION: No acute process. Dictated by: Dictated on workstation # [id number]
== END ==
LOC: RAD 10:16
DX: S59.902A Unspecified injury of left elbow, initial encounter (principal); W06.XXXA Fall from bed, initial encounter
CPT/HCPCS: 73080

== ENCOUNTER 2022-05-05 13:32 | Emergency (ER) | payer MEDICARE, OTHER ==
--- NOTE | 2022-05-05 14:56 | ED General ---
General Chief Complaint: Cardiac/General Problems Stated Complaint: BILAT FEET SWELLING Nursing Triage Note: PT AMB TO [facility] WITH C/O BILAT FEET SWELLING FOR ABOUT 1 WEEK. PT STATES SHE WAS IN [place] WHEN IT STARTED AND HAS GOTTEN WORSE SINCE GETTING HOME, Source of Information: Patient Exam Limitations: No Limitations History of Present Illness Date Seen by Provider: May 05, 2022 Time Seen by Provider: 14:40 Initial Comments Patient to ER by private conveyance chief complaint of 1 week of swelling bilateral feet. No redness or erythema. She has a wound from her shoe on the top of her left foot she is dressing with a Band-Aid which is healing well. She does not have a history of heart failure or coronary disease. She follows with Magda because she has a history of palpitations. She is a patient of Dr. Lemus. She has an echocardiogram [address] Man demonstrating normal EF without evidence of stress-induced ischemia. She is not on diuretics, Norvasc or had any recent changes in medications. No paroxysmal nocturnal dyspnea, no orthopnea. Swelling is better in the morning and worse throughout the day as she stands up. She has not been on compression stockings in the past. Allergies and Home Medications Allergies Coded Allergies: Penicillins (Unverified Allergy, Mild, EDEMA, 04/14/21) codeine (Unverified Allergy, Mild, EMESIS, 04/14/21) aspirin (Verified Allergy, Unknown, THIN BLOOD, 04/14/21) Patient Home Medication List Home Medication List Reviewed: Yes Alprazolam (Xanax) 0.25 Mg Tablet, 1-2 TAB PO Q6H PRN, (Reported) Entered as Reported by: ASIF FLORES on 06/25/13 1008 Amitriptyline HCl (Amitriptyline HCl) 25 Mg Tablet, 25 MG PO DAILY, (Reported) Entered as Reported by: ELIAN MARTINEZ on 04/14/21 1430 Aripiprazole (Abilify 5MG) 5 Mg Tablet, 5 MG PO DAILY, (Reported) Entered as Reported by: ASIF FLORES on 06/25/13 1008 Celecoxib (Celebrex) 200 Mg Capsule, 200 MG PO DAILY, (Reported) Entered as Reported by: JENNIFER MARRERO on 04/15/10 0831 Compression Socks, Large (Lifestylecomfort Socks) 1 Each Each, EACH MC DAILY, (DME) Prescribed by: CHELITA TY on 05/05/22 1459 Gabapentin (Gabapentin) 300 Mg/6 Ml Solution, 300 MG PO TID, (Reported) Entered as Reported by: ELIAN MARTINEZ on 04/14/21 1430 Hydrocodone Bit/Acetaminophen (Vicodin 5-500 Tablet) 1 Each Tablet, 1-2 TAB PO EVERY 4-6 HOURS PRN, (Reported) Entered as Reported by: EMILY SINGLETON on 06/01/12 0151 Hydroxyzine HCl (Hydroxyzine HCl) 25 Mg Tablet, 25 MG PO, (Reported) Entered as Reported by: ELIAN MARTINEZ on 04/14/21 1430 Losartan Potassium (Losartan Potassium) 25 Mg Tablet, 25 MG PO DAILY, (Reported) Entered as Reported by: ELIAN MARTINEZ on 04/14/21 1430 Metoprolol Succinate (Toprol Xl 50 Mg) 50 Mg Tab.sr.24h, 100 MG PO BID, (Reported) Entered as Reported by: JAYNA GAUTHIER on 12/30/10 1839 Oxycodone HCl/Acetaminophen (Percocet 7.5-325 mg Tablet) 1 Each Tablet, 1 TAB PO Q6H PRN for PAIN-MODERATE Prescribed by: NEDRA CHRISTIE on 04/16/21 1020 Rosuvastatin Calcium (Rosuvastatin Calcium) 20 Mg Tablet, 20 MG PO DAILY, (Reported) Entered as Reported by: ELIAN MARTINEZ on 04/14/21 1430 Sertraline Hcl (Zoloft) 100 Mg Tab, 100 MG PO TID, (Reported) Entered as Reported by: MARIE BISWAS on 10/12/09 1801 Review of Systems Review of Systems Constitutional: No chills, No diaphoresis EENTM: No ear discharge, No ear pain Respiratory: No cough, No dyspnea on exertion, No short of breath Cardiovascular: No chest pain; edema; No Hx of Intervention, No palpitations Gastrointestinal: No abdominal pain, No nausea All Other Systems Reviewed Negative Unless Noted: Yes Past Dlgjpec-Qcgbpj-Zwvoll Hx Patient Social History Tobacco Use?: No Use of E-Cig and/or Vaping dev: No Substance use?: No Alcohol Use?: No Pt feels they are or have been: No Immunizations Up To Date Influenza Vaccine Up-to-Date: Yes; Up-to-Date First/Initial COVID19 Vaccinat: dec 2020 Second COVID19 Vaccination Riaz: january 2021 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 Seasonal Allergies Seasonal Allergies: No Past Medical History Surgery/Hospitalization HX: DEPRESSION, PANIC ATTACKS, HLD, HTN, DEPRESION, HTN, NERVE PAIN ANKLE, BLADDER, PARTIAL L MASTECTOMY Surgeries: Yes (RIGHT FOOT ANKLE FX, BLADDER SLING, PARTIAL MASECTOMY LEFT BREAST NODE REM) Appendectomy, Gallbladder, Orthopedic Respiratory: No Currently Using CPAP: No Currently Using BIPAP: No Cardiac: Yes Heart Murmur, Hypertension, Palpitations Neurological: No Reproductive Disorders: No PEDIATRIC NP History: Hysterectomy Genitourinary: No Gastrointestinal: Yes Hemorrhoids Musculoskeletal: Yes Osteoporosis, Rheumatoid Arthritis, Fractures Endocrine: Yes (HYPOGLYCEMIC) HEENT: No Cancer: Yes Breast Psychosocial: Yes Anxiety Integumentary: No Blood Disorders: No Family Medical History No Pertinent Family Hx Physical Exam Vital Signs Vital Signs - First Documented 05/05/22 05/05/22 14:05 15:15 Temp 36.8 Pulse 74 Resp 20 B/P (MAP) 136/77 (96) Pulse Ox 96 O2 Delivery Room Air Capillary Refill : Height, Weight, BMI Height: '" Weight: 209lbs. oz. kg; 39.90 BMI Method: General Appearance: No Apparent Distress, WD/WN Eyes: Bilateral Eye Normal Inspection, Bilateral Eye PERRL, Bilateral Eye EOMI HEENT: PERRL/EOMI, TMs Normal, Pharynx Normal, Moist Mucous Membranes Neck: Normal Inspection, Non Tender Respiratory: No Accessory Muscle Use, No Respiratory Distress Cardiovascular: Regular Rate, Rhythm, No Murmur, Normal Peripheral Pulses Neurologic/Psychiatric: Alert, Oriented x3 Skin: Normal Color, Warm/Dry Progress/Results/Core Measures Suspected Sepsis SIRS Temperature: Pulse: 74 Respiratory Rate: 20 Blood Pressure 136 /77 Mean: 96 Results/Orders Vital Signs/I&O 05/05/22 05/05/22 14:05 15:15 Temp 36.8 36.8 Pulse 74 67 Resp 20 17 B/P (MAP) 136/77 (96) 130/67 Pulse Ox 96 O2 Delivery Room Air Capillary Refill : Blood Pressure Mean: 96 Progress Note : Time: 14:53 Progress Note No shortness of air, orthopnea or nocturnal dyspnea, evidence for heart failure. This seems to be gravity dependent edema. We recommended compression stockings and elevation. We will give her a list of new primary care doctors. Departure Impression Primary Impression: Dependent edema Disposition: 01 HOME, SELF-CARE Condition: Stable Departure-Patient Inst. Decision time for Depature: 14:56 Referrals: NO,LOCAL PHYSICIAN (PCP/Family) Primary Care Physician Patient Instructions: Dependent Edema (DC), LOCAL PHYSICIAN LIST Add. Discharge Instructions: Obtain compression stockings and wear them throughout the day while you are on your feet. If you are sitting down and prop your feet up above the level of your heart when possible. Establish care with a primary care provider. Return to the ER promptly for chest pain, shortness of air or other worrisome symptoms All discharge instructions reviewed with patient and/or family. Voiced understanding. Scripts Compression Socks, Large (Lifestylecomfort Socks) 1 Each Each EACH MC DAILY for swelling, #2 0 Refills Prov: CHELITA TY 05/05/22 CHELITA TY May 05, 2022 14:56
[2022-05-05] MEDS ORDERED: [UNRECOGNIZED DRUG - CODE] MC (14:59)
[2022-05-05 15:15] VITALS: BP 130/67
== END 2022-05-05 15:17 | disposition home or self-care (01) ==
LOC: EDUNIT# 13:32 → ER 13:34
DX: R60.0 Localized edema (principal)

== ENCOUNTER → 2022-05-10 | Outpatient (CLI) | payer MEDICARE, OTHER ==
[~2022-05-10] MED LIST changes: +[UNRECOGNIZED DRUG - CODE] MC
--- NOTE | 2022-05-10 16:48 | Diagnostic Imaging Report ---
INDICATION: Bimalleolar ankle fracture AP, oblique and lateral views of the right ankle are obtained. Since the study of 08/30/2011, there has been placement of lateral fixation plate and medial malleolar fixation screw. There is spurring along the inferior margin of the medial malleolus however no acute fracture or malalignment is identified. Plantar calcaneal spurring is also noted. IMPRESSION: Internal fixation of previous bimalleolar fractures without evidence of acute osseous abnormality. There are mild degenerative findings at the level of the ankle with enthesophyte at the plantar aspect of calcaneus. Dictated by: Dictated on workstation # [id number]
== END ==
LOC: RAD 15:52
PROVIDERS: ATTEND Nurse Practitioner
DX: M19.071 Primary osteoarthritis, right ankle and foot (principal); M77.31 Calcaneal spur, right foot; Z87.81 Personal history of (healed) traumatic fracture; Z98.890 Other specified postprocedural states
CPT/HCPCS: 73610

== ENCOUNTER → 2022-05-13 | Outpatient (CLI) | payer MEDICARE, OTHER | LOC: ORTHO 10:24 | PROVIDERS: ATTEND Orthopaedic Surgery | DX: M25.571 Pain in right ankle and joints of right foot (principal); Z98.890 Other specified postprocedural states | CPT/HCPCS: 99203 ==

== ENCOUNTER 2022-05-18 05:38 | Outpatient (CLI) | payer MEDICARE, OTHER ==
[~2022-05-18] VITALS: Ht 162 cm; Wt 62.2 kg
[2022-05-20] MEDS ORDERED: CITA20TA9 PO (11:49)
== END 2022-05-20 11:55 | disposition home or self-care (01) ==
LOC: PREOP 05:38
PROVIDERS: ATTEND Orthopaedic Surgery
DX: Z01.818 Encounter for other preprocedural examination (principal)

== ENCOUNTER 2022-05-24 08:11 | Day surgery (SDC) | payer MEDICARE, OTHER ==
[2022-05-24] VITALS (10 sets, daily range): BP systolic 106–137; BP diastolic 68–87
[~2022-05-24] VITALS: Ht 162 cm; Wt 62.2 kg
[~2022-05-24 08:11] MED LIST changes: +CITA20TA9 PO
[2022-05-24] MEDS ORDERED: ONDANSETRON 4 MG/2 ML (SDV) Z0FRAN ONE (08:44)
[2022-05-24] MEDS ORDERED: fentaNYL INJ 100 MCG/2 ML AMP ONE (08:44)
[2022-05-24] MEDS ORDERED: proPOfol 200 MG/20 ML (DIPRIVAN) VIAL IV ONE (08:44)
[2022-05-24] MEDS ORDERED: LIDOCAINE PF 2% 5 ML (XYLOCAINE) VIAL ONE (08:44)
[2022-05-24] MEDS ORDERED: CLINDAMYCIN 600 MG/50 ML IVPB 50 ML IV ONE ×2 (09:06→09:15)
[2022-05-24] MEDS ORDERED: LACTATED RINGERS 1,000 ML IV PRN (09:15)
[2022-05-24] MEDS ORDERED: BUPIVACAINE 0.5% 30 ML (SENSORCAINE) VIAL ONE (10:02)
--- NOTE | 2022-05-24 10:04 | Progress Note-Pre Operative ---
Pre-Operative Progress Note H&P Reviewed The H&P was reviewed, patient examined and no changes noted. Date Seen by Provider: May 24, 2022 Time Seen by Provider: 10:00 Date H&P Reviewed: May 24, 2022 Time H&P Reviewed: 10:00 Pre-Operative Diagnosis: Right Ankle Pain MIKAEL JHAVERI MD May 24, 2022 10:04
[2022-05-24] MEDS ORDERED: SEVOFLURANE (ULTANE) 15 ML INHAL SOLN ONE (10:53)
[2022-05-24] MEDS ORDERED: ACHD5005 PO (11:02)
[2022-05-24] MEDS ORDERED: ONDANSETRON 4 MG/2 ML (SDV) Z0FRAN IVP PRN (11:15)
[2022-05-24] MEDS ORDERED: MEPERIDINE (DEMEROL) INJ 50 MG/ML IVP ONE (11:15)
[2022-05-24] MEDS ORDERED: PROMETHAZINE INJ 25 MG/ML (PHENERGAN) AMP IVP ONE (11:15)
[2022-05-24] MEDS ORDERED: morphine INJ 10 MG/ML 1ML (SYR OR VIAL) IVP ONE (11:15)
[2022-05-24] MEDS ORDERED: HYDROmorphone 2 MG/ML VIAL (DILAUDID) IV ONE (11:15)
--- NOTE | 2022-05-24 12:12 | Operative Report - Ortho ---
Operative Report Surgeon (s)/Director Global Strategic Publisher Sales (s) Surgeon MIKAEL JHAVERI MD Director Global Strategic Publisher Sales n/a Pre-Operative Diagnosis Right Ankle Pain Post-Operative Diagnosis same Operative Report Date of Procedure: May 24, 2022 Name of Procedure Performed: Removal of Medial Malleolus Screw from Right Ankle Description & Findings After obtaining informed consent and marking the patient in the preoperative holding area, patient was taken to the operating room and general anesthesia was induced. IV antibiotics were administered. Surgical timeout was taken. The right lower extremity was prepped and draped in the usual sterile fashion. Incision was made over the distal portion of her medial scar. Blunt dissection was carried down to the prominent medial malleolar screw. Screwdriver was inserted into the screw head and the screw was removed. C-arm images demonstrated complete removal of the screw. Site was irrigated with normal saline. Closed with 3-0 nylon sutures. Injected with local anesthetic and dressed with xeroform, 4x4s, kerlix, and coban. Patient tolerated the procedure well and was stable to the recovery room. Anesthesia Type General Estimated Blood Loss minimal Specimen(s) collected/removed none IMKAEL JHAVERI MD May 24, 2022 12:12
[2022-05-24] MEDS ORDERED: HYDROcodone/APAP 5 MG/325 MG (LORTAB) TAB PO ONE (12:15)
--- NOTE | 2022-05-24 13:46 | Anesthesia-General Post-Op ---
General Patient Condition Mental Status/LOC: Same as Preop Cardiovascular: Satisfactory Nausea/Vomiting: Absent Respiratory: Satisfactory Pain: Controlled Complications: Absent Post Op Complications Complications None Follow Up Care/Instructions Patient Instructions None needed. Anesthesia/Patient Condition Patient Condition Patient is doing well, no complaints, stable vital signs, no apparent adverse anesthesia problems. No complications reported per nursing. MIKAEL CHANEY CRNA May 24, 2022 13:46
== END 2022-05-24 13:15 | disposition home or self-care (01) ==
LOC: SDC 08:11
PROVIDERS: ATTEND Orthopaedic Surgery
DX: M25.571 Pain in right ankle and joints of right foot (principal); E66.9 Obesity, unspecified; Z68.23 Body mass index [BMI] 23.0-23.9, adult
CPT/HCPCS: 87081

== ENCOUNTER → 2022-06-08 | Outpatient (CLI) | payer MEDICARE, OTHER ==
[~2022-06-08] MED LIST changes: +ACHD5005 PO
== END ==
LOC: ORTHO 11:00
PROVIDERS: ATTEND Orthopaedic Surgery
DX: Z47.89 Encounter for other orthopedic aftercare (principal); Z98.890 Other specified postprocedural states

== ENCOUNTER → 2022-07-14 | Outpatient (CLI) | payer MEDICARE, OTHER ==
--- NOTE | 2022-07-14 18:23 | Diagnostic Imaging Report ---
EXAMINATION: Ultrasound of the right breast. INDICATION: Right breast mass. FINDINGS: By history, the patient has a mass along the lateral aspect of the right breast. The diagnostic mammogram performed prior to this study failed to show any sign of malignancy. The ultrasound examination of this area is also unremarkable for a discrete solid or cystic mass. It may be that the palpable abnormality in question is related to fibroglandular tissue and/or fat alone. However if clinical concern regarding a palpable abnormality persists, then biopsy should still be considered. IMPRESSION: There is no discrete solid or cystic mass in the area of concern. Clinical follow-up is recommended. ACR BI-RADS Category 1: Negative. Result letter will be mailed to the patient. Note: At least 10% of breast cancer is not imaged by mammography. Dictated by: Dictated on workstation # [id number]
--- NOTE | 2022-07-14 18:25 | Diagnostic Imaging Report ---
EXAMINATION: 3D bilateral diagnostic mammogram with CAD. COMPARISON: This study was compared to the prior exams of 07/08/2021, 07/10/2020 and 09/03/2019. FINDINGS: By history, the patient has had a lumpectomy for carcinoma on the left a number of years ago. At this time she now complains of a "mass" along the lateral aspect of the right breast. A marker was placed in the area of concern in the far lateral aspect of the right breast. There is no primary or secondary sign of malignancy evident in this area. Even so, I would recommend that ultrasound be performed for further study. There are scattered fibroglandular densities in both breasts which could obscure a lesion. The postsurgical changes involving the left breast seen previously are again evident and no different. There is no primary or secondary sign of malignancy noted. IMPRESSION: 1. There is no evidence for malignancy. 2. Ultrasound of the right breast however is pending for further study. ACR BI-RADS Category 0: Incomplete. (Needs additional imaging evaluation). Result letter will be mailed to the patient. Note: At least 10% of breast cancer is not imaged by mammography. Dictated by: Dictated on workstation # [id number]
== END ==
LOC: RAD 13:15
PROVIDERS: ATTEND Internal Medicine Hematology & Oncology
DX: N63.10 Unspecified lump in the right breast, unspecified quadrant (principal); Z85.3 Personal history of malignant neoplasm of breast
CPT/HCPCS: 76642; 77066; G0279; 77062

== ENCOUNTER 2022-12-10 17:29 | Emergency (ER) | payer MEDICARE, OTHER ==
[~2022-12-10] VITALS: Ht 162 cm; Wt 111.0 kg
[2022-12-10] MEDS ORDERED: TETANUS,DIPTH,PERTUSS P/F (BOOSTRIX) 0.5 ML VIAL IM ONE (17:45)
--- NOTE | 2022-12-10 18:06 | Diagnostic Imaging Report ---
INDICATION: Left knee and ankle pain post fall. TECHNIQUE: Three views of the left knee. CORRELATION STUDY: None. FINDINGS: The joint spaces are maintained. The articular surfaces are smooth and preserved. There is no acute bony abnormality. Prominent soft tissue contour deformity below the tibial tuberosity. IMPRESSION: 1. Negative for acute bony abnormality of the knee. Dictated by: Dictated on workstation # [id number]
--- NOTE | 2022-12-10 18:09 | Diagnostic Imaging Report ---
INDICATION: Ankle pain. COMPARISON: None available. TECHNIQUE: Three radiographs of the left ankle dated 12/10/2022. FINDINGS: No acute fracture or dislocation. No destructive osseous process. The talar dome is unremarkable. The ankle mortise is symmetric. Small plantar calcaneal enthesophyte. No evidence of tarsal coalition. No suspicious radiopaque foreign body. IMPRESSION: No acute osseous abnormality. Dictated by: Dictated on workstation # [id number]
--- NOTE | 2022-12-10 18:12 | ED Fall/Injury ---
General Chief Complaint: Trauma-Non Activation Stated Complaint: FALL Nursing Triage Note: SEE TRIAGE Source: patient Exam Limitations: no limitations (SHANNAN MARTÍNEZ MD) History of Present Illness Date Seen by Provider: Dec 10, 2022 Time Seen by Provider: 17:40 Initial Comments This 72-year-old woman presents to the emergency room with complaints of facial pain, knee pain, and left ankle pain after having a fall at her home. She took a long car trip from [place] back home. Upon arriving home she got out of the car and was walking to the door when she rolled her ankle on a stone and fell. She fell on outstretched hands, knees, and her face. She has abrasions on the camille dge of her nose, lip, and chin. She reports facial pain and tenderness. She has some minor abrasions on her hands and knees. She primarily complains of extremity pain in the left knee and left ankle. There is no loss of consciousness and she denies any symptoms of concussion. She is not anticoagulated and takes no antiplatelet medication. She reports this was a mechanical fall with no prodrome of lightheadedness, shortness of breath, chest pain, etc. She was not able to get up after the fall due to pain in the left knee. She sat on the curb until EMS arrived. She does not know when her last tetanus immunization was. She was noted to be rather hypertensive on arrival. She reports taking all of her medications including her blood pressure medications earlier in the day. Location Injury Occurred: HOME (SHANNAN MARTÍNEZ MD) Allergies and Home Medications Allergies Coded Allergies: Penicillins (Unverified Allergy, Mild, EDEMA, 04/14/21) codeine (Unverified Allergy, Mild, EMESIS, 04/14/21) aspirin (Verified Allergy, Unknown, THIN BLOOD, 04/14/21) Patient Home Medication List Home Medication List Reviewed: Yes (SAHNNAN MARTÍNEZ MD) Alprazolam (Xanax) 0.25 Mg Tablet, 1-2 TAB PO Q6H PRN, (Reported) Entered as Reported by: ASIF FLORES on 06/25/13 1008 Amitriptyline HCl (Amitriptyline HCl) 25 Mg Tablet, 25 MG PO DAILY, (Reported) Entered as Reported by: ELIAN MARTINEZ on 04/14/21 1430 Aripiprazole (Abilify 5MG) 5 Mg Tablet, 5 MG PO DAILY, (Reported) Entered as Reported by: ASIF FLORES on 06/25/13 1008 Celecoxib (Celebrex) 200 Mg Capsule, 200 MG PO DAILY, (Reported) Entered as Reported by: EJNNIFER MARRERO on 04/15/10 0831 Citalopram Hydrobromide (Citalopram HBr) 20 Mg Tablet, 20 MG PO DAILY, (Reported) Entered as Reported by: CATHLEEN FONSECA on 05/20/22 1149 Compression Socks, Large (Lifestylecomfort Socks) 1 Each Each, EACH MC DAILY, (DME) Prescribed by: CHELITA TY on 05/05/22 1459 Gabapentin (Gabapentin) 300 Mg/6 Ml Solution, 300 MG PO TID, (Reported) Entered as Reported by: ELIAN MARTINEZ on 04/14/21 1430 Hydrocodone/Acetaminophen (Hydrocodone-Acetamin 5-325 mg) 5 Mg-325 Mg Tablet, 1 TAB PO Q6H PRN for PAIN-MODERATE (5-7) Prescribed by: MIKAEL JHAVERI MD on 05/24/22 1103 Metoprolol Succinate (Toprol Xl 50 Mg) 50 Mg Tab.sr.24h, 100 MG PO BID, (Reported) Entered as Reported by: JAYNA GAUTHIER on 12/30/10 1839 Rosuvastatin Calcium (Rosuvastatin Calcium) 20 Mg Tablet, 20 MG PO DAILY, (Reported) Entered as Reported by: ELIAN MARTINEZ on 04/14/21 1430 Review of Systems Review of Systems Constitutional: no symptoms reported Eyes: No Symptoms Reported Ears, Nose, Mouth, Throat: no symptoms reported Respiratory: no symptoms reported Cardiovascular: no symptoms reported Gastrointestinal: no symptoms reported Genitourinary: no symptoms reported : No Musculoskeletal: see HPI Skin: see HPI Psychiatric/Neurological: No Symptoms Reported (SHANNAN MARTÍNEZ MD) Past Dxfbafp-Mntyga-Znrlrx Hx Patient Social History Tobacco Use?: No Substance use?: No Alcohol Use?: No Pt feels they are or have been: No (SHANNAN MARTÍNEZ MD) Immunizations Up To Date Tetanus Booster (TDap): Unknown Influenza Vaccine Up-to-Date: Yes; Up-to-Date First/Initial COVID19 Vaccinat: dec 2020 Second COVID19 Vaccination Riaz: january 2021 Third COVID19 Vaccination Date: 2020 (SHANNAN MARTÍNEZ MD) Seasonal Allergies Seasonal Allergies: No (SHANNAN MARTÍNEZ MD) Past Medical History Surgery/Hospitalization HX: DEPRESSION, PANIC ATTACKS, HLD, HTN, DEPRESION, HTN, NERVE PAIN ANKLE, BLADDER, PARTIAL L MASTECTOMY Surgeries: Yes (RIGHT FOOT ANKLE FX, BLADDER SLING, PARTIAL MASECTOMY LEFT BREAST NODE REM) Appendectomy, Breast, Gallbladder, Orthopedic Respiratory: No Currently Using CPAP: No Currently Using BIPAP: No Cardiac: Yes Heart Murmur, Hypertension, Palpitations Neurological: No Reproductive Disorders: 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 Genitourinary: No Gastrointestinal: Yes Hemorrhoids Musculoskeletal: Yes (RIGHT ANKLE PAIN - HARDWARE) Osteoporosis, Rheumatoid Arthritis, Fractures Endocrine: Yes (HYPOGLYCEMIC) HEENT: Yes (DENTURES) Cancer: Yes Breast What Type of Treatment Did You: Radiation, Surgical Intervention Psychosocial: Yes Anxiety, Depression Integumentary: No Blood Disorders: No (SHANNAN MARTÍNEZ MD) Family Medical History No Pertinent Family Hx (SHANNAN MARTÍNEZ MD) Physical Exam Vital Signs Vital Signs - First Documented 12/10/22 17:30 Temp 35.7 Pulse 74 Resp 18 B/P (MAP) 190/112 (138) Pulse Ox 96 (MISSY FAYE MD) Vital Signs Capillary Refill : Less Than 3 Seconds (SHANNAN MARTÍNEZ MD) Height, Weight, BMI Height: '" Weight: 209lbs. oz. kg; 42.00 BMI Method: General Appearance: WD/WN, no apparent distress HEENT: PERRL/EOMI, other (Dentures. Tenderness over the forehead, nasal bridge, cheeks, and perioral areas. Abrasion over the bridge of the nose.) Neck: non-tender, normal inspection Cardiovascular: regular rate, rhythm, no edema, no murmur Respiratory: lungs clear, normal breath sounds, no respiratory distress Gastrointestinal: normal bowel sounds, non tender, soft Extremities: other (Abrasion and significant tenderness to the left knee. Pain with any range of motion or palpation of the knee joint. Minimal abrasion to the right knee without significant pain or range of motion limitation. Tenderness over the left lateral ankle. Minor abrasions on the hands without significant tenderness or range of motion limitations. Shoulder is minimally tender with baseline range of motion.) Neurologic/Psychiatric: no motor/sensory deficits, alert, normal mood/affect, oriented x 3 Skin: normal color, warm/dry, other (Abrasions as above) (SHANNAN MARTÍNEZ MD) Ezra Coma Score Best Eye Response: (4) Open Spontaneously Best Verbal Response: (5) Oriented Best Motor Response: (6) Obeys Commands [place] Total: 15 (SHANNAN MARTÍNEZ MD) Progress/Results/Core Measures Results/Orders Medications Given in ED Current Medications Medications Dose Ordered Sig/Kika Route Start Time Stop Time Status Last Admin Dose Admin Diphtheria/ Tetanus/Acell Pertussis 0.5 ml ONCE ONCE IM 12/10/22 17:45 12/10/22 17:46 DC 12/10/22 17:46 0.5 ML Fentanyl Citrate 50 mcg ONCE ONCE IM 12/10/22 18:15 12/10/22 18:16 DC 12/10/22 18:13 50 MCG (MISSY FAYE MD) Vital Signs/I&O 12/10/22 17:30 Temp 35.7 Pulse 74 Resp 18 B/P (MAP) 190/112 (138) Pulse Ox 96 (MISSY FAYE MD) Blood Pressure Mean: 138 Progress Progress Note : Time: 18:15 Progress Note X-rays of the left knee and ankle have been reviewed by me and reports reviewed. No acute bony injuries or dislocations were appreciated. Patient was treated with a fentanyl IM injection and a tetanus booster. We will monitor her blood pressure after treatment of pain. Care of this patient is being transitioned to Dr. Faye at this time. CT of the face and head is pending presently. (SHANNAN MARTÍNEZ MD) Progress Note : Progress Note Received the patient in signout pending CT imaging. This was negative for any acute findings. I personally walked the patient and she was able to ambulate with little difficulty without assistance. I offered crutches or a walker which she refused at this time, and she states that she will be okay. I wrapped her left knee with an Terrence bandage to help with comfort. She was then discharged home in stable condition with strict return precautions (MISSY FAYE MD) Diagnostic Imaging Diagonstic Imaging: Xray Plain Films/CT/US/NM/MRI: ankle Comments Left ankle x-ray viewed by me and report reviewed. See report below: NAME: BERONICA COLEMAN [facility] REC#: [id number] PT STATUS: REG ER : 1950 PHYSICIAN: SHANNAN MARTÍNEZ MD ADMIT DATE: 12/10/22/ER Draft Date of Exam:12/10/22 ANKLE, LEFT, 3 VIEWS INDICATION: Ankle pain. COMPARISON: None available. TECHNIQUE: Three radiographs of the left ankle dated 12/10/2022. FINDINGS: No acute fracture or dislocation. No destructive osseous process. The talar dome is unremarkable. The ankle mortise is symmetric. Small plantar calcaneal enthesophyte. No evidence of tarsal coalition. No suspicious radiopaque foreign body. IMPRESSION: No acute osseous abnormality. Dictated on workstation # [id number] Dict: 12/10/221805 Trans: 12/10/221807 [facility] [id number] Interpreted by: TI NICE MD Diagonstic Imaging: Xray Plain Films/CT/US/NM/MRI: knee Comments Left knee x-rays reviewed by me and report reviewed. See report below: NAME: BERONICA COLEMAN [facility] REC#: [id number] PT STATUS: REG ER : 1950 PHYSICIAN: SHANNAN MARTÍNEZ MD ADMIT DATE: 12/10/22/ER Draft Date of Exam:12/10/22 KNEE, LEFT, 3 VIEWS INDICATION: Left knee and ankle pain post fall. TECHNIQUE: Three views of the left knee. CORRELATION STUDY: None. FINDINGS: The joint spaces are maintained. The articular surfaces are smooth and preserved. There is no acute bony abnormality. Prominent soft tissue contour deformity below the tibial tuberosity. IMPRESSION: 1. Negative for acute bony abnormality of the knee. Dictated on workstation # [id number] Dict: 12/10/22 1804 Trans: 12/10/221805 [id number] Interpreted by: MIKE RATLIFF DO (SHANNAN MARTÍNEZ MD) Diagonstic Imaging: CT (head and max/face) Comments NAME: BERONICA COLEMAN [facility] REC#: [id number] PT STATUS: REG ER : 1950 PHYSICIAN: SHANNAN MARTÍNEZ MD ADMIT DATE: 12/10/22/ER Draft Date of Exam:12/10/22 CT HEAD/MAXILLOFACIAL WO PROCEDURE: CT head and maxillofacial without contrast. TECHNIQUE: Multiple contiguous axial images were obtained through the head and facial bones without the use of intravenous contrast. Auto Exposure Controls were utilized during the CT exam to meet ALARA standards for radiation dose reduction. INDICATION: 72-year-old female, fall with left-sided facial pain. CORRELATION STUDY: CT head from 12/20/2014. FINDINGS: CT HEAD: Ventricles and sulci are age appropriate. No abnormal areas of decreased attenuation to suggest edema. No intracranial hemorrhage. No midline shift or mass effect. Abnormal appearance about the bony calvarium. There is again demonstration of a well-circumscribed lucent lesions within the posterior bony calvarium, particularly along the occipital regions. This involves both inner and outer table, overall not appreciably changed and likely remains consistent with a benign process. Mild hyperostosis frontalis. Paranasal sinuses are clear. CT MAXILLOFACIAL: Maxillofacial bones are intact. No acute fracture or bony destructive change. Patient is edentulous. Paranasal sinuses are clear without significant mucosal thickening, air-fluid level. Globes and retro-orbital structures are unremarkable and symmetric. Advanced degenerative changes of the visualized cervical spine. Most pronounced disc space narrowing at C4-C5, C5-C6, and C6-C7 levels. IMPRESSION: CT HEAD: 1. Negative for acute intracranial abnormality. CT MAXILLOFACIAL: 1. Negative for acute displaced maxillofacial fracture deformity. Dictated on workstation # [id number] Dict: 12/10/22 1811 Trans: 12/10/22 1822 AS6 [id number] Interpreted by: MIKE RATLIFF DO Electronically signed by: (MISSY FAYE MD) Departure Impression Primary Impression: Fall on same level as cause of accidental injury Additional Impressions: Facial contusion Qualified Codes: S00.83XA - Contusion of other part of head, initial encounter Contusion of left knee Qualified Codes: S80.02XA - Contusion of left knee, initial encounter Left ankle sprain Qualified Codes: S93.402A - Sprain of unspecified ligament of left ankle, initial encounter Multiple abrasions Disposition: HOME, SELF-CARE Condition: Stable Departure-Patient Inst. Decision time for Depature: 18:26 (MISSY FAYE MD) Referrals: PEREZ GILES APRN (PCP/Family) Primary Care Physician Patient Instructions: Minor Head Injury, Adult ED Add. Discharge Instructions: Fortunately nothing is broken or seriously injured on your imaging today. You likely will be in significant pain. Take extra strength Tylenol, 1000 mg every 6-8 hours as needed for pain. You can also ice the areas that are not doing well. If things are not improving in the next week or so, follow-up with your regular doctor. Copy Copies To 1: [facility]/SHANNAN ALONSO MD Dec 10, 2022 18:12 MISSY FAYE MD Dec 10, 2022 18:27
[2022-12-10] MEDS ORDERED: fentaNYL INJ 100 MCG/2 ML AMP IM ONE (18:15)
--- NOTE | 2022-12-10 18:23 | Diagnostic Imaging Report ---
PROCEDURE: CT head and maxillofacial without contrast. TECHNIQUE: Multiple contiguous axial images were obtained through the head and facial bones without the use of intravenous contrast. Auto Exposure Controls were utilized during the CT exam to meet ALARA standards for radiation dose reduction. INDICATION: 72-year-old female, fall with left-sided facial pain. CORRELATION STUDY: CT head from 12/20/2014. FINDINGS: CT HEAD: Ventricles and sulci are age appropriate. No abnormal areas of decreased attenuation to suggest edema. No intracranial hemorrhage. No midline shift or mass effect. Abnormal appearance about the bony calvarium. There is again demonstration of a well-circumscribed lucent lesions within the posterior bony calvarium, particularly along the occipital regions. This involves both inner and outer table, overall not appreciably changed and likely remains consistent with a benign process. Mild hyperostosis frontalis. Paranasal sinuses are clear. CT MAXILLOFACIAL: Maxillofacial bones are intact. No acute fracture or bony destructive change. Patient is edentulous. Paranasal sinuses are clear without significant mucosal thickening, air-fluid level. Globes and retro-orbital structures are unremarkable and symmetric. Advanced degenerative changes of the visualized cervical spine. Most pronounced disc space narrowing at C4-C5, C5-C6, and C6-C7 levels. IMPRESSION: CT HEAD: 1. Negative for acute intracranial abnormality. CT MAXILLOFACIAL: 1. Negative for acute displaced maxillofacial fracture deformity. Dictated by: Dictated on workstation # [id number]
[2022-12-10 18:42] VITALS: BP 190/112
== END 2022-12-10 18:42 | disposition home or self-care (01) ==
LOC: EDUNIT# 17:29 → ER 17:30
DX: S93.402A Sprain of unspecified ligament of left ankle, initial encounter (principal); S80.02XA Contusion of left knee, initial encounter; S00.83XA Contusion of other part of head, initial encounter; S00.31XA Abrasion of nose, initial encounter; S80.211A Abrasion, right knee, initial encounter; S60.512A Abrasion of left hand, initial encounter; S60.511A Abrasion of right hand, initial encounter; W18.30XA Fall on same level, unspecified, initial encounter; X50.1XXA Overexertion from prolonged static or awkward postures, initial encounter; Y92.009 Unspecified place in unspecified non-institutional (private) residence as the place of occurrence of the external cause; Y93.01 Activity, walking, marching and hiking; Z88.6 Allergy status to analgesic agent
CPT/HCPCS: 70450; 70486; 73562; 73610; 90715

== ENCOUNTER → 2023-03-17 | Outpatient (CLI) | payer MEDICARE, OTHER | LOC: CARD 07:48 | PROVIDERS: ATTEND Internal Medicine Cardiovascular Disease | DX: I10 Essential (primary) hypertension (principal) | CPT/HCPCS: 93306 ==

== ENCOUNTER → 2023-07-20 | Outpatient (CLI) | payer MEDICARE, OTHER ==
[~2023-07-20] MED LIST changes: -GABA300S2 PO; +GABA300S3 PO; -ROSU20TA32 PO; +ROSU20TA73 PO
--- NOTE | 2023-07-20 13:02 | Diagnostic Imaging Report ---
INDICATION: Pain in the lateral portion of the left breast. COMPARISON: Correlation is made with the prior mammograms from 07/14/2022 and 07/08/2021. TECHNIQUE: 2D and 3D bilateral diagnostic mammography was performed with CAD. FINDINGS: Scattered fibroglandular densities are identified bilaterally. The overall parenchymal pattern appears stable. No mass or malignant-appearing microcalcifications are seen. There are benign calcifications on the left. There appear to be clips in the left axilla. IMPRESSION: No suspicious mammographic findings are identified to suggest malignancy. Even so, directed sonographic interrogation of the area of pain in the upper outer left breast is recommended and will be performed today. ACR BI-RADS Category 0: Incomplete. (Needs additional imaging evaluation). Result letter will be mailed to the patient. Note: At least 10% of breast cancer is not imaged by mammography. Dictated by: Dictated on workstation # [id number]
--- NOTE | 2023-07-20 14:09 | Diagnostic Imaging Report ---
INDICATION: Palpable lump in the left breast. COMPARISON: Correlation is made with the diagnostic mammogram from earlier this same day. FINDINGS: Sonographic interrogation of the area of palpable abnormality in the left breast was performed. This corresponds to the 3 o'clock location. There is a hypoechoic nodule at the 3 o'clock retroareolar location measuring 7 x 6 x 8 mm. No internal vascularity is seen. The margins are slightly irregular. In correlation with the diagnostic mammogram, there is an oil cyst in that location. It is uncertain if this represents the oil cyst. There does appear to be some edge shadowing present. No other masses are seen. IMPRESSION: Indeterminate hypoechoic nodule at the 3 o'clock retroareolar left breast corresponding to the palpable abnormality. In light of the patient's prior history of left breast carcinoma and lumpectomy, tissue sampling would be recommended. This is amenable to ultrasound-guided biopsy. ACR BI-RADS Category 4: Suspicious abnormality. Result letter will be mailed to the patient. Note: At least 10% of breast cancer is not imaged by mammography. Dictated by: Dictated on workstation # [id number]
== END ==
LOC: RAD 12:13
PROVIDERS: ATTEND Nurse Practitioner
DX: N63.25 Unspecified lump in the left breast, overlapping quadrants (principal); R74.8 Abnormal levels of other serum enzymes; Z85.3 Personal history of malignant neoplasm of breast
CPT/HCPCS: 76642; 77066; G0279; 77062

== ENCOUNTER → 2023-07-20 | Outpatient (CLI) | payer MEDICARE, OTHER ==
--- NOTE | 2023-07-20 14:15 | Diagnostic Imaging Report ---
EXAMINATION: CT chest and abdomen without contrast. TECHNIQUE: Multiple contiguous axial images were obtained through the chest and abdomen without the use of intravenous contrast. All CT scans use one or more of the following dose optimizing techniques: automated exposure control, MA and/or KvP adjustment based on patient size and exam type or iterative reconstruction. HISTORY: Breast cancer followup, elevated liver enzymes. COMPARISON: 07/08/2021, 03/18/2021. FINDINGS: Thyroid: The thyroid is normal. Mediastinum: The heart size is normal without significant pericardial effusion. The aorta is normal in caliber. No suspicious lymphadenopathy. Lungs and airways: There is scarring within the lung apices and lingula. No consolidation, pleural effusion, or pneumothorax. No suspicious pulmonary lesion. The airways are normal. Solid organs: Stable hypoattenuating lesions within hepatic segments 4A and B which are presently not significantly changed from studies dating back to 02/14/2020. The liver is otherwise unremarkable. The gallbladder is surgically absent. There is no biliary ductal dilation. Pancreas is normal. Spleen is normal. Adrenal glands are normal. There is a left renal cyst which is unchanged and requires no followup. No visualized renal calculus or hydronephrosis. Bowel: No bowel obstruction. Peritoneum: There is no intraperitoneal free fluid or free air. No suspicious lymphadenopathy. Vasculature: Normal without aneurysm. Musculoskeletal: Degenerative changes of the spine without suspicious osseous lesion or compression fracture. IMPRESSION: No new findings of metastatic disease within the chest or abdomen. Dictated by: Dictated on workstation # [id number]
== END ==
LOC: RAD 12:16
PROVIDERS: ATTEND Internal Medicine Hematology & Oncology
DX: N64.4 Mastodynia (principal); R74.8 Abnormal levels of other serum enzymes; Z85.3 Personal history of malignant neoplasm of breast
CPT/HCPCS: 71250; 74150

== ENCOUNTER → 2023-07-28 | Outpatient (CLI) | payer MEDICARE, OTHER ==
[~2023-07-28] VITALS: Ht 170.2 cm; Wt 111.0 kg
[~2023-07-28] MED LIST changes: +LIDOCAINE 1% INJ 10 ML VIAL INJ ONE; +LIDOCAINE 1% INJ 10 ML VIAL ONE
--- NOTE | 2023-07-28 12:25 | Diagnostic Imaging Report ---
INDICATION: Left breast mass. PROCEDURE: The patient presents for ultrasound-guided core biopsy. The patient was brought to the sonographic suite and placed on the table in the supine position. Ultrasound imaging of the left breast was performed to evaluate appropriate entry site. Left breast was then prepped and draped in the usual sterile fashion. A small amount of 1% lidocaine was utilized for local anesthesia. A total of 4 core biopsies were made of the hypoechoic nodule at the 3:00 location of the left breast utilizing the 14-gauge Achieve needle. After the 1st pass it was noticed that the lesion appeared to change and partially collapsed. This may represent a complex cystic lesion. Marker clip was then deployed. Hemostasis was obtained using manual compression. Patient tolerated the procedure well and was sent for a post procedure mammogram on dedicated mammographic equipment. IMPRESSION: Successful ultrasound-guided core biopsy of the hypoechoic nodule at the 3:00 location left breast. Pathology results are currently pending. Dictated by: Dictated on workstation # [id number]
--- NOTE | 2023-07-28 13:24 | Diagnostic Imaging Report ---
Indication: Left breast nodule. Patient status post left breast ultrasound guided biopsy with clip placement. Unilateral left 2-D CC and ML mammography was performed. Clip placement is noted slightly upper and slightly outer left breast anterior to mid depth. This appears to be in the region of an oil cyst noted on the diagnostic study. IMPRESSION: Clip placement, status post ultrasound-guided left breast biopsy. Dictated by: Dictated on workstation # [id number]
== END ==
LOC: RAD 10:04
PROVIDERS: ATTEND Internal Medicine Hematology & Oncology
DX: N63.20 Unspecified lump in the left breast, unspecified quadrant (principal); R92.8 Other abnormal and inconclusive findings on diagnostic imaging of breast; Z98.82 Breast implant status
CPT/HCPCS: 19083; 77065; A4648; G0279